=== PATIENT | female | born 1955 | race Caucasian/White ===

== ENCOUNTER 2016-08-16 17:36 | Emergency (ER) | payer MEDICARE ==
--- NOTE | 2016-08-16 18:02 | ERPHSYRPT ---
- History of Present Illness Time Seen by Provider: 08/16/16 17:57 Source: patient Exam Limitations: no limitations Physician History: The patient is a 7-year-old female with her son complaining of a cough for 4 weeks. She developed a fever of 101.2 last night. She vomited today. She has a mild sore throat. She did not receive an influenza vaccination this year. She smokes. She has COPD. Timing/Duration: yesterday (fever since yest), week(s) (4 week cough) Cough Quality/Degree: dry cough Possible Cause: occasional episodes, smoke exposure Modifying Factors: Improves With: activity Associated Symptoms: fever Allergies/Adverse Reactions: amoxicillin trihydrate [From Augmentin] Adverse Reaction (Verified 08/16/16 18: 04) potassium clavulanate [From Augmentin] Adverse Reaction (Verified 08/16/16 18:04 ) Home Medications: Buspirone HCl 10 mg PO BID 11/27/15 [History] Venlafaxine HCl ER 75 mg [Effexor XR 75 MG] 225 mg PO DAILY 11/27/15 [ History] Alendronate Sodium 70 mg [Fosamax 70 MG] 70 mg PO Q7D@0600 08/16/16 [ History] Cholecalciferol (Vitamin D3) [Vitamin D3] 10,000 unit PO DAILY 08/16/16 [History ] Hx Tetanus, Diphtheria Vaccination/Date Given: Yes (unknown) Hx Influenza Vaccination/Date Given: No Hx Pneumococcal Vaccination/Date Given: No - Review of Systems Constitutional: Fever Eyes: No Symptoms Ears, Nose, & Throat: Throat Pain Respiratory: Cough Cardiac: No Chest Pain, No Edema, No Syncope Abdominal/Gastrointestinal: No Abdominal Pain, No Nausea, No Vomiting, No Diarrhea Genitourinary Symptoms: No Dysuria Musculoskeletal: No Back Pain, No Neck Pain Skin: No Rash Neurological: No Dizziness, No Focal Weakness, No Sensory Changes Psychological: No Symptoms Endocrine: No Symptoms Hematologic/Lymphatic: No Symptoms Immunological/Allergic: No Symptoms All Other Systems: Reviewed and Negative - Past Medical History Pertinent Past Medical History: Yes Psycho-Social History: Anxiety Other Medical History: chronic pain - Past Surgical History Past Surgical History: Yes Musculoskeletal: Joint Replacement, Orthopedic Surgery Female Surgical History: Hysterectomy - Social History Smoking Status: Current every day smoker How long have you smoked: 40 Exposure to second hand smoke: No Drug Use: none Patient Lives Alone: No - Nursing Vital Signs Nursing Vital Signs: Initial Vital Signs Temperature 98.5 F Temperature Source Oral Pulse Rate 97 Respiratory Rate 20 Blood Pressure [] 133/82 Pain Intensity 0 - Physical Exam General Appearance: no apparent distress, alert Eye Exam: PERRL/EOMI, eyes nml inspection Ears, Nose, Throat Exam: normal ENT inspection, TMs normal, pharynx normal, moist mucous membranes Neck Exam: normal inspection, non-tender, supple, full range of motion Respiratory Exam: rhonchi Cardiovascular Exam: regular rate/rhythm, normal heart sounds Gastrointestinal/Abdomen Exam: soft, No tenderness Pelvic Exam: not done Rectal Exam: not done Back Exam: normal inspection, No CVA tenderness, No vertebral tenderness Extremity Exam: normal inspection, normal range of motion Neurologic Exam: alert, oriented x 3, cooperative, normal mood/affect, sensation nml, No motor deficits Skin Exam: normal color, warm, dry, No rash SpO2 Interpretation: normal - Radiology Exams Chest X-ray Interpretation: Interpreted by me, Infiltrates (RML) Ordered Tests: Active Orders 24 hr Category Date Time Status CHEST 2 VIEWS (PA AND LAT) Stat Exams 08/16/16 18:04 Taken Medication Summary Discontinued Medications Generic Name Dose Route Start Last Admin Trade Name Roman PRN Reason Stop Dose Admin Ceftriaxone Sodium 1,000 mg 08/16/16 19:01 08/16/16 19:05 Rocephin 1000 Mg Inj IM 08/16/16 19:02 1,000 mg STAT ONE Administration Ceftriaxone Sodium Confirm 08/16/16 19:03 Rocephin 1000 Mg Inj Administered 08/16/16 19:04 Dose 1,000 mg .ROUTE .STK-MED ONE Lidocaine HCl Confirm 08/16/16 19:03 Xylocaine 1% Hcl 20 Ml Mdv Administered 08/16/16 19:04 Dose 3 ml .ROUTE .STK-MED ONE - Progress Progress: improved Air Movement: good Blood Culture(s) Obtained: No Antibiotics given: No Counseled pt/family regarding: rad results - Departure Time of Disposition: 19:07 Departure Disposition: Home Clinical Impression: Pulmonary infiltrate Condition: Stable Critical Care Time: No Referrals: XAVIER WELLS [Primary Care Provider] - Additional Instructions: Follow up in 1 to 2 days. Prescriptions: Azithromycin [Azithromycin 250 mg Pack] 250 mg PO UD #6 tablet
[2016-08-16] MEDS ORDERED: Rocephin 1000 MG INJ IM ONE (19:01)
[2016-08-16] MEDS ORDERED: XYLOCAINE 1% HCL 20 ML MDV ONE (19:03)
[2016-08-16] MEDS ORDERED: Rocephin 1000 MG INJ ONE (19:03)
[2016-08-16 19:14] VITALS: BP 132/78; PULSE 91; O2SAT 96
--- NOTE | 2016-08-17 08:54 | XRAY ---
Indication: Cough. Comparison: None PA/lateral chest demonstrates subtle right middle lobe infiltrate versus atelectasis and a few scattered calcified granulomas. Remaining lungs clear. Heart is not enlarged. Bony thorax intact with mild osteopenia and previous surgery of the left shoulder and visualized lumbar spine. Impression: Right middle lobe infiltrate/atelectasis. Correlate clinically.
== END 2016-08-16 19:14 | disposition home or self-care (01) ==
LOC: ED 17:36
DX: R91.8 Other nonspecific abnormal finding of lung field (principal); R50.9 Fever, unspecified; J44.9 Chronic obstructive pulmonary disease, unspecified; R11.10 Vomiting, unspecified; Z72.0 Tobacco use
CPT/HCPCS: 71020; 87631; 96372; 99283; 99284; J0696

== ENCOUNTER 2016-10-01 13:28 | Emergency (ER) | payer MEDICARE ==
[2016-10-01 13:35] VITALS: O2SAT 95
[2016-10-01] MEDS ORDERED: Norco 10/325 MG Tablet PO ONE (14:07)
[2016-10-01] MEDS ORDERED: Norco 10/325 MG Tablet ONE (14:11)
--- NOTE | 2016-10-01 14:26 | XRAY ---
Indication: Lateral pain and bruising following twisting injury. Comparison: None 3 nonweightbearing views of the left foot demonstrates tiny spurring of the midfoot and calcaneus. A few soft tissue calcified granulomas. No other bony, articular, or soft tissue abnormalities.
--- NOTE | 2016-10-01 14:27 | ERPHSYRPT ---
- History of Present Illness Time Seen by Provider: 10/01/16 14:00 Source: patient Exam Limitations: clinical condition Patient Subjective Stated Complaint: lt foot pain post fall on wednesday Triage Nursing Assessment: fell into covered area on wednesday and injured lt foot. fell to knees. intermittent scatica pain and constant lt foot pain. bruising and swelling to outer lt foot. pedal pulses present. Physician History: PATIENT STATES SHE TURNED HER LEFT FOOT, HEARD POP SENSATION WALKING DOWN STEPS 2 DAYS AGO. HAS PERSISTENT PAIN WITH SWELLING. DENIES DEFORMITY OR BRUISING. Method of Injury: twisted Occurred: days ago Quality: constant, throbbing Severity of Pain-Max: severe Severity of Pain-Current: severe Lower Extremities Pain: heel: left Modifying Factors: Improves With: movement Associated Symptoms: unable to bear weight Allergies/Adverse Reactions: amoxicillin trihydrate [From Augmentin] Adverse Reaction (Verified 10/01/16 13: 35) potassium clavulanate [From Augmentin] Adverse Reaction (Verified 10/01/16 13:35 ) Home Medications: Buspirone HCl 10 mg PO BID 11/27/15 [History] Venlafaxine HCl ER 75 mg [Effexor XR 75 MG] 225 mg PO DAILY 11/27/15 [ History] Alendronate Sodium 70 mg [Fosamax 70 MG] 70 mg PO Q7D@0600 08/16/16 [ History] Cholecalciferol (Vitamin D3) [Vitamin D3] 50,000 unit PO UD 08/16/16 [History] Hx Tetanus, Diphtheria Vaccination/Date Given: Yes Hx Influenza Vaccination/Date Given: No Hx Pneumococcal Vaccination/Date Given: No Immunizations Up to Date: Yes - Review of Systems Constitutional: No Fever, No Chills Eyes: No Symptoms Ears, Nose, & Throat: No Symptoms Respiratory: No Cough, No Dyspnea Cardiac: No Chest Pain, No Edema, No Syncope Abdominal/Gastrointestinal: No Abdominal Pain, No Nausea, No Vomiting, No Diarrhea Genitourinary Symptoms: No Dysuria Musculoskeletal: Injury, Joint Pain, No Back Pain, No Neck Pain Skin: No Rash Neurological: No Dizziness, No Focal Weakness, No Sensory Changes Psychological: No Symptoms Endocrine: No Symptoms All Other Systems: Reviewed and Negative - Past Medical History Pertinent Past Medical History: Yes Musculoskeletal History: Degenerative Disk Disease Psycho-Social History: Anxiety Other Medical History: chronic pain - Past Surgical History Past Surgical History: Yes Musculoskeletal: Joint Replacement, Orthopedic Surgery Female Surgical History: Hysterectomy Other Surgical History: back surgery. bilat hip replacement. lt shoulder surgery - Social History Smoking Status: Former smoker How long have you smoked: 40 Exposure to second hand smoke: Yes Drug Use: none Patient Lives Alone: No - Nursing Vital Signs Nursing Vital Signs: Initial Vital Signs Temperature 97.6 F Temperature Source Oral Pulse Rate 87 Respiratory Rate 16 Blood Pressure [] 136/75 Pain Intensity 9 - Physical Exam General Appearance: alert Back Exam: normal inspection, No vertebral tenderness Foot Exam: left foot: pain (MARKED TENDERNESS LEFT HEAD OF 5TH METATARSAL, NO ECCHYMOSIS, LEFT PEDIS PULSE 2+), soft tissue tenderness, swelling Neuro/Tendon Exam: normal sensation, normal motor functions Mental Status Exam: alert, oriented x 3, cooperative Skin Exam: normal color, warm, dry SpO2: 95 Oxygen Delivery: Room Air - Radiology Exams Left Foot X-ray Interpretation: Discussed w/ radiologist (NO EVIDENCE OF FRACTURE OF DISLOCATION) Ordered Tests: Active Orders 24 hr Category Date Time Status Crutches STAT Care 10/01/16 14:38 Inactive Splint STAT Care 10/01/16 14:28 Active FOOT (MINIMUM 3 VIEWS) Stat Exams 10/01/16 14:08 Completed Medication Summary Discontinued Medications Generic Name Dose Route Start Last Admin Trade Name Roman PRN Reason Stop Dose Admin Acetaminophen/Hydrocodone Bitart 1 tab 10/01/16 14:07 10/01/16 14:19 [place] 10/325 Mg Tablet PO 10/01/16 14:08 1 tab STAT ONE Administration Acetaminophen/Hydrocodone Bitart Confirm 10/01/16 14:11 [place] 10/325 Mg Tablet Administered 10/01/16 14:12 Dose 1 tab .ROUTE .STK-MED ONE - Progress Progress Note: 10/01/16 14:37 PATIENT GIVEN NORCO 10/325 ORALLY, FITTED FOR LEFT POST OP SHOE 10/01/16 14:42 Counseled pt/family regarding: diagnosis, need for follow-up - Departure Time of Disposition: 14:50 Departure Disposition: Home Clinical Impression: CONTUSION/STRAIN LEFT FOOT Condition: Stable Critical Care Time: No Referrals: XAVIER WELLS [Primary Care Provider] - Additional Instructions: WEAR POST OP SHOE FOR COMFORT. AMBULATE USING WALKER ASSISTANCE NONWEIGHT BEARING LEFT FOOT FOR 5 DAYS. TORADOL 10MG EVERY 6 HOURS FOR MILD TO MODERATE PAIN. NORCO 5/325 EVERY 4 HOURS FOR SEVERE PAIN. Prescriptions: Hydrocodone Bit/Acetaminophen [[place] 5/325Mg] 1 each PO Q4HPRN PRN #10 tablet PRN Reason: Pain Ketorolac Tromethamine [Toradol] 10 mg PO Q6HPRN PRN #20 tablet PRN Reason: Pain
[2016-10-01 14:52] VITALS: BP 133/75; PULSE 86
== END 2016-10-01 14:53 | disposition home or self-care (01) ==
LOC: ED 13:28
DX: S90.32XA Contusion of left foot, initial encounter (principal); S93.602A Unspecified sprain of left foot, initial encounter; W10.9XXA Fall (on) (from) unspecified stairs and steps, initial encounter
CPT/HCPCS: 73630; 99283; A9270-GY

== ENCOUNTER 2016-12-06 17:22 | Emergency (ER) | payer MEDICARE ==
--- NOTE | 2016-12-06 17:48 | ERPHSYRPT ---
- History of Present Illness Time Seen by Provider: 12/06/16 17:45 Source: patient Exam Limitations: no limitations Patient Subjective Stated Complaint: pt states she noticed some hematuria yesterday. pt also c/o cough.states it is productive. c/o dysuria. Triage Nursing Assessment: pt pink, warm, dry. lung sounds clear and equal. Physician History: pt states she noticed some hematuria yesterday. pt also c/o cough.states it is productive. c/o dysuria. c/o fever, no nausea, vomiting diarrhea Pain Radiation: suprapubic Severity of Pain-Max: mild Severity of Pain-Current: mild Sexual intercourse history: non-contributory Modifying Factors: Improves With: nothing Associated Symptoms: dysuria, urinary frequency, other (cough with chest congestion) Allergies/Adverse Reactions: amoxicillin trihydrate [From Augmentin] Adverse Reaction (Verified 12/06/16 17: 41) potassium clavulanate [From Augmentin] Adverse Reaction (Verified 12/06/16 17:41 ) Home Medications: Buspirone HCl 10 mg PO BID 11/27/15 [History] Venlafaxine HCl ER 75 mg [Effexor XR 75 MG] 225 mg PO DAILY 11/27/15 [ History] Alendronate Sodium 70 mg [Fosamax 70 MG] 70 mg PO Q7D@0600 08/16/16 [ History] Cholecalciferol (Vitamin D3) [Vitamin D3] 50,000 unit PO UD 08/16/16 [History] Hx Tetanus, Diphtheria Vaccination/Date Given: Yes (unknown) Hx Influenza Vaccination/Date Given: No Hx Pneumococcal Vaccination/Date Given: No - Review of Systems Constitutional: Fever Eyes: No Symptoms Ears, Nose, & Throat: No Symptoms Respiratory: Cough Cardiac: No Symptoms Abdominal/Gastrointestinal: No Symptoms Genitourinary Symptoms: Dysuria, Hematuria Musculoskeletal: No Symptoms Skin: No Symptoms - Past Medical History Pertinent Past Medical History: Yes Respiratory History: COPD, Emphysema Musculoskeletal History: Degenerative Disk Disease Psycho-Social History: Anxiety Other Medical History: chronic pain - Past Surgical History Past Surgical History: Yes Musculoskeletal: Joint Replacement, Orthopedic Surgery Female Surgical History: Hysterectomy Other Surgical History: back surgery. bilat hip replacement. lt shoulder surgery - Social History Smoking Status: Current every day smoker How long have you smoked: 30 Exposure to second hand smoke: Yes Drug Use: none Patient Lives Alone: No - Nursing Vital Signs Nursing Vital Signs: Initial Vital Signs Temperature 99.0 F Temperature Source Oral Pulse Rate 97 Respiratory Rate 18 Blood Pressure [] 120/57 Pain Intensity 0 - Physical Exam General Appearance: no apparent distress Eye Exam: PERRL/EOMI Ears, Nose, Throat Exam: normal ENT inspection Neck Exam: normal inspection Respiratory Exam: normal breath sounds Cardiovascular Exam: regular rate/rhythm Gastrointestinal/Abdomen Exam: soft Neurologic Exam: alert, oriented x 3 Skin Exam: normal color SpO2 Interpretation: normal SpO2: 97 Oxygen Delivery: Room Air - Course Nursing assessment & vital signs reviewed: Yes - Radiology Exams Chest X-ray Interpretation: Reviewed by me (no acute infiltrate) Ordered Tests: Active Orders 24 hr Category Date Time Status CHEST 2 VIEWS (PA AND LAT) Stat Exams 12/06/16 17:40 Ordered CBC W DIFF Stat Lab 12/06/16 17:51 Completed CMP Stat Lab 12/06/16 17:51 Completed CULTURE,URINE Stat Lab 12/06/16 17:51 Received Manual Differential NC Stat Lab 12/06/16 17:51 Completed UA W/ MICROSCOPIC Stat Lab 12/06/16 17:51 Completed Medication Summary Discontinued Medications Generic Name Dose Route Start Last Admin Trade Name Freq PRN Reason Stop Dose Admin Ciprofloxacin 500 mg 12/06/16 18:15 12/06/16 18:22 Cipro 500 Mg PO 12/06/16 18:16 500 mg STAT ONE Administration Potassium Chloride 40 meq 12/06/16 18:22 12/06/16 18:24 Klor Con 10 Meq PO 12/06/16 18:23 40 meq STAT ONE Administration Lab/Rad Data: Laboratory Result Diagrams 12/06/16 17:51 12/06/16 17:51 Laboratory Results 12/06/16 12/06/16 12/06/16 Range/Units 17:51 17:51 17:51 WBC 9.1 (4.0-10.5) K/mm3 RBC 4.25 (4.1-5.4) M/mm3 Hgb 12.7 (12.0-16.0) gm/dl Hct 37.6 (35-47) % MCV 88.5 (78-100) fl MCH 29.9 (26-32) pg MCHC 33.8 (32-36) g/dl RDW 14.9 H (11.5-14.0) % Plt Count 162 (150-450) K/mm3 MPV 9.9 H (6-9.5) fl Sodium 137 (136-145) mEq/L Potassium 2.6 L* (3.5-5.1) mEq/L Chloride 102 (98-107) mEq/L Carbon Dioxide 26.5 (21-32) mEq/L Anion Gap 11.7 (5-15) MEQ/L BUN 7 L (9-20) mg/dL Creatinine 0.83 (0.55-1.30) mg/dl Estimated GFR > 60 ML/MIN Glucose 150 H (70-110) MG/DL Calcium 9.3 (8.5-10.1) mg/dL Total Bilirubin 0.40 (0.2-1.0) mg/dL AST 20 (15-37) U/L ALT 19 (12-78) U/L Alkaline Phosphatase 117 H (46-116) U/L Serum Total Protein 6.7 (6.4-8.2) gm/dL Albumin 2.9 L (3.4-5.0) g/dL Ur Collection Type CLEAN CATCH Urine Color YELLOW (YELLOW) Urine Appearance SLIGHTLY CLOUDY (CLEAR) Urine pH 6.0 (5-6) Ur Specific Mayo 1.005 (1.005-1.025) Urine Protein 30 (Negative) Urine Ketones NEGATIVE (NEGATIVE) Urine Blood 250 (0-5) Roman/ul Urine Nitrite POSITIVE (NEGATIVE) Urine Bilirubin NEGATIVE (NEGATIVE) Urine Urobilinogen NORMAL (0-1) mg/dL Ur Leukocyte Esterase 2+ (NEGATIVE) Urine Microscopic RBC 10-15 (0-2) /HPF Urine Microscopic WBC 25-50 (0-5) /HPF Ur Epithelial Cells MODERATE (FEW) /HPF Urine Bacteria MANY (NEGATIVE) /HPF Urine Mucus SLIGHT (NEGATIVE) /HPF Urine Glucose NEGATIVE (NEGATIVE) mg/dL Specimen Received 12/06/16 1750 - Progress Progress: unchanged Air Movement: good Counseled pt/family regarding: lab results, diagnosis, need for follow-up, rad results, smoking cessation - Departure Time of Disposition: 18:17 Departure Disposition: Home Clinical Impression: Pyelonephritis, acute, Hypokalemia due to loss of potassium, Hyperglycemia Condition: Stable Critical Care Time: No Referrals: ABDAYEM,XAVIER [Primary Care Provider] - Instructions: Hematuria, Kidney Infection Additional Instructions: URINARY TRACT INFECTION 1. You will need to drink plenty of fluids in order to keep your urinary system flushed. These fluids should mainly consist of water and juices. 2. Take medications as directed. You need to completely finish any antiobiotic prescription given. 3. Try to avoid coffee, tea, alcohol, and seasoned foods as they may cause bladder irritation. 4. If signs and symptoms persist after 3-4 days, you will need to follow up with your family physician. 5. Female Patients: A. Avoid intercourse for 3-4 days. B. Empty bladder before and after intercourse to reduce risk of re- infection. C. After emptying bladder, wipe from front to back to reduce the risk of re- infection. Please follow the instructions given to you. Please take your medication as prescribed if given. If symptoms recur or get worse, come back to the emergency room if you cannot reach your primary care physician, or call your primary care physician for an appointment. Again if your symptoms get worse, come back to the emergency room. Thanks for visiting emergency room, and let us take care of you. Please get your blood and urine test done to check your potassium level and infection in your urine in 3 days. Prescriptions: Ciprofloxacin [Cipro 500 MG] 500 mg PO BIDAC #20 tablet Potassium Chloride [K-Dur] 20 meq PO BID #20 tab.er.prt
[2016-12-06 17:55] LABS: Mean Cell Volume 88.5 fl (78-100); Mean Corpuscular Hemoglobin 29.9 pg (26-32); Mean Platelet Volume 9.9 fl (6-9.5); Platelet Count 162 K/mm3 (150-450); Red Blood Count 4.25 M/mm3 (4.1-5.4); Red Cell Distribution Width 14.9 % (11.5-14.0); White Blood Count 9.1 K/mm3 (4.0-10.5)
[2016-12-06 18:06] LABS: Collection Type CLEAN CATCH; Leukocyte Esterase 2+ (NEGATIVE)
[2016-12-06 18:07] LABS: ADD URINE CULTURE? YES (NO); Bacteria MANY /HPF (NEGATIVE); Bilirubin NEGATIVE (NEGATIVE); Blood 250 Ery/ul (0-5); COMPLETE URINE MICROSCOPIC? YES; Epithelial Cells MODERATE /HPF (FEW); Glucose NEGATIVE (NEGATIVE); Mucus SLIGHT /HPF (NEGATIVE); WBC 25-50 /HPF (0-5)
[2016-12-06 18:14] LABS: ALBUMIN 2.9 g/dL (3.4-5.0); ALKALINE PHOSPHATASE 117 U/L (46-116); ANION GAP 11.7 MEQ/L (5-15); BLOOD UREA NITROGEN 7 mg/dL (9-20); CHLORIDE 102 mEq/L (98-107); Carbon Dioxide 26.5 mEq/L (21-32); Glucose 150 MG/DL (70-110); SGOT/AST 20 U/L (15-37); SGPT/ALT 19 U/L (12-78); SODIUM 137 mEq/L (136-145); Total Protein 6.7 gm/dL (6.4-8.2)
[2016-12-06] MEDS ORDERED: Cipro 500 MG PO ONE (18:15)
[2016-12-06 18:21] LABS: Potassium 2.6 mEq/L (3.5-5.1)
[2016-12-06] MEDS ORDERED: Klor Con 10 MEQ PO ONE (18:22)
[2016-12-06 18:41] VITALS: BP 131/70; PULSE 85; O2SAT 100
[2016-12-06 18:52] LABS: BAND 2 % (0.0-2.0); Platelet Estimate NORMAL (NORMAL); Total Cells Counted 100
--- NOTE | 2016-12-06 21:07 | XRAY ---
Indication: Cough. Comparison: August 16, 2016. PA/lateral chest again demonstrates calcified granulomas, largest in the right costophrenic angle. No focal infiltrate, consolidation, or large effusion. Heart is not enlarged. Bony thorax intact again with mild osteopenia and left shoulder arthroplasty. Impression: Nonacute chest with chronic features.
== END 2016-12-06 18:41 | disposition home or self-care (01) ==
LOC: ED 17:22
DX: N10 Acute pyelonephritis (principal); E87.6 Hypokalemia; R73.9 Hyperglycemia, unspecified; R31.9 Hematuria, unspecified; R05 Cough; R30.0 Dysuria; R50.9 Fever, unspecified; R35.0 Frequency of micturition; J44.9 Chronic obstructive pulmonary disease, unspecified
CPT/HCPCS: 36415; 71020; 80053; 81000; 85025; 87077; 87086; 87186; 99283; 99284; A9270-GY

== ENCOUNTER 2017-02-22 16:07 | Emergency (ER) | payer MEDICARE ==
[2017-02-22 16:16] VITALS: BP 165/70; PULSE 94; O2SAT 99
[2017-02-22] MEDS ORDERED: XYLOCAINE 1% HCL 20 ML MDV IJ ONE (16:44)
[2017-02-22] MEDS ORDERED: BACIGUENT PACKET TP ONE (16:44)
[2017-02-22] MEDS ORDERED: Adacel Vial IM ONE (16:44)
--- NOTE | 2017-02-22 16:50 | ERPHSYRPT ---
- History of Present Illness Time Seen by Provider: 02/22/17 16:38 Source: patient Patient Subjective Stated Complaint: PT REPORTS A BITE TO LOWER RIGHT LEG- REPORTS SORE OPENED ET BEGAN DRAINING GREEN DRAINAGE TODAY Triage Nursing Assessment: PT PINK WARM ET [id number] NONLABORED-OPENED SORE NOTED TO LOWER RIGHT CALF-NO DRAINAGE AT THIS TIME Physician History: CC: right leg redness Hx: 61 y/o patient of Dr Nunez. She has a place on right lower medial leg with some green drng this AM. It has some itching and burning. Allergic to augmentin. Allergies/Adverse Reactions: amoxicillin trihydrate [From Augmentin] Allergy (Intermediate, Verified 16:16) Hives potassium clavulanate [From Augmentin] Allergy (Intermediate, Verified 02/22/17 16:16) Hives Home Medications: Buspirone HCl 10 mg PO BID 11/27/15 [History] Venlafaxine HCl ER 75 mg [Effexor XR 75 MG] 225 mg PO DAILY 11/27/15 [ History] Alendronate Sodium 70 mg [Fosamax 70 MG] 70 mg PO Q7D@0600 08/16/16 [ History] Hx Tetanus, Diphtheria Vaccination/Date Given: Yes Hx Influenza Vaccination/Date Given: Yes (2015) Hx Pneumococcal Vaccination/Date Given: No Immunizations Up to Date: Yes - Review of Systems Constitutional: No Fever, No Chills Skin: Skin Lesions (right leg) - Past Medical History Pertinent Past Medical History: Yes Respiratory History: COPD, Emphysema Musculoskeletal History: Degenerative Disk Disease Psycho-Social History: Anxiety Other Medical History: chronic pain - Past Surgical History Past Surgical History: Yes Musculoskeletal: Joint Replacement, Orthopedic Surgery Female Surgical History: Hysterectomy Other Surgical History: back surgery. bilat hip replacement. lt shoulder surgery - Social History Smoking Status: Current every day smoker How long have you smoked: 30 Exposure to second hand smoke: Yes Drug Use: none Patient Lives Alone: No - Nursing Vital Signs Nursing Vital Signs: Initial Vital Signs Temperature 98.9 F 02/22/17 16:11 Pulse Rate 94 H 02/22/17 16:11 Respiratory Rate 18 02/22/17 16:11 Blood Pressure 165/70 02/22/17 16:11 O2 Sat by Pulse Oximetry 99 02/22/17 16:11 Pain Scale Pain Intensity 7 - Physical Exam General Appearance: alert Cardiovascular/Respiratory Exam: regular rate/rhythm Neuro/Tendon Exam: normal sensation, normal motor functions Mental Status Exam: alert, oriented x 3, cooperative Skin Exam: warm, dry, other (red area with central necrosis and some drng right lwoer medial leg) SpO2: 99 Oxygen Delivery: Room Air Procedures - Incision and Drainage Site: right lower leg medial Anesthesia: 1% Lidocaine cc's of anesthesia: 2 Blade Size: other (18 ga needle) I & D Procedure: betadine prep Results: small amount pus - Course Nursing assessment & vital signs reviewed: Yes Ordered Tests: Active Orders 24 hr Category Date Time Status Wound Care STAT Care 02/22/17 16:44 Active Medication Summary Generic Name Dose Route Start Last Admin Trade Name Jhonatanq PRN Reason Stop Dose Admin Bacitracin 0.9 gm 02/22/17 16:44 Baciguent Packet TP 02/22/17 16:45 STAT ONE Diphtheria/Tetanus/Acell Pertussis 0.5 ml 02/22/17 16:44 Adacel Vial IM 02/22/17 16:45 .ONCE ONE Lidocaine HCl 5 ml 02/22/17 16:44 Xylocaine 1% Hcl 20 Ml Mdv IJ 02/22/17 16:45 STAT ONE - Progress Progress Note: 02/22/17 16:47 Rx bactrim and bactroban. Instr given. Counseled pt/family regarding: diagnosis, need for follow-up - Departure Time of Disposition: 16:48 Departure Disposition: Home Clinical Impression: cutaneous abscess leg right lower Condition: Stable Critical Care Time: No Referrals: KRISTINE NUNEZ [Primary Care Provider] - Instructions: Incision and Drainage of a Skin Abscess Additional Instructions: Rx bactrim. Rx bactroban. Elevate leg. Warm compresses 4 times a day. Follow up with Dr Nunez. Prescriptions: Mupirocin [Bactroban OINTMENT] 15 gm TP BID #1 tube Smz/Tmp Ds Tablet [Bactrim Ds Tablet] 1 udtab PO BID #20 tablet
== END 2017-02-22 16:53 | disposition home or self-care (01) ==
LOC: ED 16:07
DX: L02.415 Cutaneous abscess of right lower limb (principal); S81.851A Open bite, right lower leg, initial encounter
CPT/HCPCS: 90471; 90715; 99283; A9270-GY

== ENCOUNTER 2017-03-06 15:58 | Emergency (ER) | payer MEDICARE ==
[2017-03-06] MEDS ORDERED: Rocephin 1000 MG INJ IM ONE (16:13)
[2017-03-06] MEDS ORDERED: XYLOCAINE 1% HCL 20 ML MDV ONE (16:16)
[2017-03-06] MEDS ORDERED: Rocephin 1000 MG INJ ONE (16:16)
--- NOTE | 2017-03-06 16:19 | ERPHSYRPT ---
- History of Present Illness Time Seen by Provider: 03/06/17 16:14 Source: patient Exam Limitations: no limitations Patient Subjective Stated Complaint: pt states that she has absess on her leg for 2 wks-tx by ed a week ago-pt stated that she does not want her pcp to treat her for that Triage Nursing Assessment: pt pink warm et [id number] noted-no drainage noted-resp easy et nonlabored Physician History: pt states that she has abscess on her leg for 2 wks-tx by ed a week ago-patient was seen in ER 1 week ago and it was drained and started on topical abx and oral bactrim but ulcer is not healing and redness is spreading Quality: painful Severity: mild Location: extremities (right lower leg) Allergies/Adverse Reactions: amoxicillin trihydrate [From Augmentin] Allergy (Intermediate, Verified 16:16) Hives potassium clavulanate [From Augmentin] Allergy (Intermediate, Verified 02/22/17 16:16) Hives Home Medications: Buspirone HCl 10 mg PO BID 11/27/15 [History] Venlafaxine HCl ER 75 mg [Effexor XR 75 MG] 225 mg PO DAILY 11/27/15 [ History] Alendronate Sodium 70 mg [Fosamax 70 MG] 70 mg PO Q7D@0600 08/16/16 [ History] Hx Tetanus, Diphtheria Vaccination/Date Given: Yes Hx Influenza Vaccination/Date Given: Yes (2015) Hx Pneumococcal Vaccination/Date Given: No Immunizations Up to Date: Yes - Review of Systems Constitutional: No Fever, No Chills Eyes: No Symptoms Ears, Nose, & Throat: No Symptoms Respiratory: No Cough, No Dyspnea Cardiac: No Chest Pain, No Edema, No Syncope Abdominal/Gastrointestinal: No Abdominal Pain, No Nausea, No Vomiting, No Diarrhea Genitourinary Symptoms: No Dysuria Musculoskeletal: No Back Pain, No Neck Pain Skin: Cellulitis, Induration, No Rash Neurological: No Dizziness, No Focal Weakness, No Sensory Changes Psychological: No Symptoms Endocrine: No Symptoms All Other Systems: Reviewed and Negative - Past Medical History Pertinent Past Medical History: Yes Respiratory History: COPD, Emphysema Musculoskeletal History: Degenerative Disk Disease Psycho-Social History: Anxiety Other Medical History: chronic pain - Past Surgical History Past Surgical History: Yes Musculoskeletal: Joint Replacement, Orthopedic Surgery Female Surgical History: Hysterectomy Other Surgical History: back surgery. bilat hip replacement. lt shoulder surgery - Social History Smoking Status: Current every day smoker How long have you smoked: 30 Exposure to second hand smoke: Yes Drug Use: none Patient Lives Alone: No - Nursing Vital Signs Nursing Vital Signs: Pain Scale Pain Intensity 7 - Physical Exam General Appearance: no apparent distress Eye Exam: PERRL/EOMI Ears, Nose, Throat Exam: normal ENT inspection Neck Exam: normal inspection Respiratory Exam: normal breath sounds Cardiovascular Exam: regular rate/rhythm Extremity Exam: other (small open ulcer on right lower leg with minimal purulent discharge) Neurologic Exam: alert, oriented x 3 - Course Nursing assessment & vital signs reviewed: Yes Ordered Tests: Medication Summary Generic Name Dose Route Start Last Admin Trade Name Freq PRN Reason Stop Dose Admin Ceftriaxone Sodium 1,000 mg 03/06/17 16:13 Rocephin 1000 Mg Inj IM 03/06/17 16:14 STAT ONE - Progress Progress: unchanged Counseled pt/family regarding: diagnosis, need for follow-up - Departure Time of Disposition: 16:17 Departure Disposition: Home Clinical Impression: Ulcer of right leg Qualifiers: Non-pressure ulcer stage: limited to breakdown of skin Qualified Code(s): L97.911 - Non-pressure chronic ulcer of unspecified part of right lower leg limited to breakdown of skin Condition: Stable Critical Care Time: No Referrals: KRISTINE MOONEY [Primary Care Provider] - Instructions: Wound Infection, Methicillin-Resistant Staph Infection (MRSA) Additional Instructions: Please follow the instructions given to you. Please take your medication as prescribed if given. If symptoms recur or get worse, come back to the emergency room if you cannot reach your primary care physician, or call your primary care physician for an appointment. Again if your symptoms get worse, come back to the emergency room. Thanks for visiting emergency room, and let us take care of you. Prescriptions: Levofloxacin [Levaquin 500 MG Tablet] 500 mg PO QAM #10 tablet
[2017-03-06 16:24] VITALS: BP 155/77; PULSE 88; O2SAT 99
== END 2017-03-06 16:23 | disposition home or self-care (01) ==
LOC: ED 15:58
DX: L97.911 Non-pressure chronic ulcer of unspecified part of right lower leg limited to breakdown of skin (principal); M79.661 Pain in right lower leg
CPT/HCPCS: 96372; 99284; J0696

== ENCOUNTER 2017-04-29 12:28 | Observation (INO) | payer MEDICARE ==
[2017-04-29] MEDS ORDERED: ROCEPHIN 1 Gm-D5w 50 ml Bag** 1 G/50 ML IVPB IV STA (12:51)
[2017-04-29] MEDS ORDERED: solu-MEDROL 125 MG IV ONE (12:51)
[2017-04-29] MEDS ORDERED: DUONEB 0.5-3 MG/3 ml Neb IH ONE ×3 (12:51→15:56)
[2017-04-29 13:14] LABS: BASOPHIL % 0.2 % (0.0-0.4); Eosinophil % 1.4 % (0.00-5.0); Lymphocytes % 17.8 % (24.0-44.0); Mean Cell Volume 86.8 fl (78-100); Mean Corpuscular Hemoglobin 27.6 pg (26-32); Mean Platelet Volume 9.8 fl (6-9.5); Monocytes % 9.6 % (0.0-12.0); Platelet Count 322 K/mm3 (150-450); Red Blood Count 4.63 M/mm3 (4.1-5.4); Red Cell Distribution Width 14.6 % (11.5-14.0); White Blood Count 8.1 K/mm3 (4.0-10.5)
[2017-04-29] MEDS ORDERED: solu-MEDROL 125 MG ONE (13:16)
[2017-04-29] MEDS ORDERED: ROCEPHIN 1 Gm-D5w 50 ml Bag** 1 G/50 ML IVPB IV ONE ×2 (13:16→18:00)
--- NOTE | 2017-04-29 13:24 | XRAY ---
Indication: Cough and dyspnea. Comparison: December 06, 2016P PA/lateral chest demonstrates new right lower lobe pneumonic infiltrate without large effusion. Remaining heart and lungs normal with incidental calcified granulomas. Bony thorax intact again with mild osteopenia and left shoulder arthroplasty.
[2017-04-29] MEDS ORDERED: Zithromax 500 MG/ 250 ML NaCl Premix 500 MG/250 ML IVPB IV STA (13:37)
[2017-04-29] MEDS ORDERED: Sodium Chloride 0.9% 1000 ML 1,000 ML IV SCH ×2 (13:45→15:15)
--- NOTE | 2017-04-29 13:46 | ERPHSYRPT ---
- History of Present Illness Time Seen by Provider: 04/29/17 12:45 Source: patient Exam Limitations: clinical condition Patient Subjective Stated Complaint: cough and chest congestion for five days Triage Nursing Assessment: skin w/d, color normal, resp easy. occasional dry cough. breath sounds diminished. Physician History: PATIENT WITH A HISTORY OF COPD COMPLAINS OF A NONPRODUCTIVE COUGH, EXERTIONAL DYSPNEA FOR 5 DAYS. DENIES FEVER, CHILLS, NIGHT SWEATS OR CHEST PAIN. Timing/Duration: day(s) Activities at Onset: activity Severity of Dyspnea-Max: moderate Severity of Dyspnea-Current: moderate Possible Cause: occasional episodes Modifying Factors: Improves With: activity Associated Symptoms: wheezing International travel in last 2 weeks: No Allergies/Adverse Reactions: amoxicillin trihydrate [From Augmentin] Allergy (Intermediate, Verified 12:37) Hives potassium clavulanate [From Augmentin] Allergy (Intermediate, Verified 04/29/17 12:37) Hives Home Medications: Buspirone HCl 10 mg PO BID 11/27/15 [History] Venlafaxine HCl ER 75 mg [Effexor XR 75 MG] 225 mg PO DAILY 11/27/15 [ History] Alendronate Sodium 70 mg [Fosamax 70 MG] 70 mg PO Q7D@0600 08/16/16 [ History] Pregabalin [Lyrica] 150 mg PO BID 04/29/17 [History] Hx Tetanus, Diphtheria Vaccination/Date Given: No Hx Influenza Vaccination/Date Given: Yes (2016) Hx Pneumococcal Vaccination/Date Given: No - Review of Systems Constitutional: No Fever, No Chills Respiratory: Cough, Dyspnea on Exertion (POOL) Cardiac: No Chest Pain, No Edema, No Syncope Neurological: No Dizziness, No Focal Weakness, No Sensory Changes Psychological: No Symptoms - Past Medical History Pertinent Past Medical History: Yes Respiratory History: COPD, Emphysema Musculoskeletal History: Degenerative Disk Disease Psycho-Social History: Anxiety Other Medical History: chronic pain - Past Surgical History Past Surgical History: Yes Musculoskeletal: Joint Replacement, Orthopedic Surgery Female Surgical History: Hysterectomy Other Surgical History: back surgery. bilat hip replacement. lt shoulder surgery - Social History Smoking Status: Current every day smoker How long have you smoked: 30 Exposure to second hand smoke: Yes Drug Use: none Patient Lives Alone: Yes - Nursing Vital Signs Nursing Vital Signs: Initial Vital Signs Temperature 97.4 F 04/29/17 12:34 Pulse Rate 105 H 04/29/17 12:34 Respiratory Rate 18 04/29/17 12:34 Blood Pressure 138/58 04/29/17 12:34 O2 Sat by Pulse Oximetry 91 L 04/29/17 12:34 Pain Scale Pain Intensity 4 - Physical Exam General Appearance: no apparent distress, alert Eye Exam: PERRL/EOMI Ears, Nose, Throat Exam: normal pharynx Neck Exam: normal inspection, supple Respiratory Exam: diminished breath sounds, wheezing (RIGHT LOWER LUNG, MINIMAL WHEEZES TERMINAL EXPIRATORYH) Cardiovascular/Chest Exam: normal heart sounds, regular rate/rhythm Peripheral Pulses Exam: carotid (R): 2+, carotid (L): 2+, femoral (R): 2+, femoral (L): 2+, dorsalis-pedis (R): 2+, dorsalis-pedis (L): 2+ Neurologic Exam: alert, oriented x 3 Skin Exam: normal color, warm SpO2 Interpretation: normal SpO2: 92 Oxygen Delivery: Room Air - Radiology Exams Chest X-ray Interpretation: Discussed w/ radiologist (NEW RIGHT LOWER LOBE PNEUMONIC INFILTRATE WITHOUT LARGE EFFUSION) Ordered Tests: Active Orders 24 hr Category Date Time Status IV Insertion STAT Care 04/29/17 12:51 Active Oxygen-ED Only NASAL CANNULA 2 lpm Care 04/29/17 13:37 Active CHEST 2 VIEWS (PA AND LAT) Stat Exams 04/29/17 12:51 Completed BLOOD CULTURE Stat Lab 04/29/17 14:00 Received BMP Stat Lab 04/29/17 13:00 Completed CBC W DIFF Stat Lab 04/29/17 12:51 Completed Respiratory Nebulizer STAT RT 04/29/17 12:51 Completed Medication Summary Generic Name Dose Route Start Last Admin Trade Name Freq PRN Reason Stop Dose Admin Sodium Chloride 1,000 mls @ 200 mls/hr 04/29/17 13:45 04/29/17 13:53 Sodium Chloride 0.9% 1000 Ml IV 05/29/17 13:44 200 mls/hr .Q5H AURA Administration Discontinued Medications Generic Name Dose Route Start Last Admin Trade Name Freq PRN Reason Stop Dose Admin Albuterol/Ipratropium 3 ml 04/29/17 12:51 04/29/17 12:58 Duoneb 0.5-3 Mg/3 Ml Neb IH 04/29/17 12:52 3 ml STAT ONE Administration Albuterol/Ipratropium Confirm 04/29/17 12:57 Duoneb 0.5-3 Mg/3 Ml Neb Administered 04/29/17 12:58 Dose 3 ml IH .STK-MED ONE Ceftriaxone Sodium/Dextrose 1 g in 50 mls @ 100 mls/hr 04/29/17 12:51 13:20 Rocephin 1 Gm-D5w 50 Ml Bag IV 04/29/17 13:20 100 mls/hr STAT STA Administration Ceftriaxone Sodium/Dextrose Confirm 04/29/17 13:16 Rocephin 1 Gm-D5w 50 Ml Bag Administered 04/29/17 13:17 Dose 1 g in 50 mls @ ud IV .STK-MED ONE Azithromycin 500 mg in 250 mls @ 250 mls/hr 04/29/17 13:37 04/29/17 14:06 Zithromax 500 Mg/ 250 Ml Nacl Premix IV 04/29/17 14:36 250 mls/hr STAT STA Administration Azithromycin Confirm 04/29/17 14:04 Zithromax 500 Mg/ 250 Ml Nacl Premix Administered 04/29/17 14:05 Dose 500 mg in 250 mls @ ud IV .STK-MED ONE Methylprednisolone Sodium Succinate 125 mg 04/29/17 12:51 04/29/17 13:20 Solu-Medrol 125 Mg IV 04/29/17 12:52 125 mg STAT ONE Administration Methylprednisolone Sodium Succinate Confirm 04/29/17 13:16 Solu-Medrol 125 Mg Administered 04/29/17 13:17 Dose 125 mg .ROUTE .STK-MED ONE Lab/Rad Data: Laboratory Result Diagrams 04/29/17 12:51 04/29/17 13:00 Laboratory Results 04/29/17 04/29/17 Range/Units 13:00 12:51 WBC 8.1 (4.0-10.5) K/mm3 RBC 4.63 (4.1-5.4) M/mm3 Hgb 12.8 (12.0-16.0) gm/dl Hct 40.2 (35-47) % MCV 86.8 (78-100) fl MCH 27.6 (26-32) pg MCHC 31.8 L (32-36) g/dl RDW 14.6 H (11.5-14.0) % Plt Count 322 (150-450) K/mm3 MPV 9.8 H (6-9.5) fl Gran % 71.0 H (36.0-66.0) % Lymphocytes % 17.8 L (24.0-44.0) % Monocytes % 9.6 (0.0-12.0) % Eosinophils % 1.4 (0.00-5.0) % Basophils % 0.2 (0.0-0.4) % Basophils # 0.02 (0-0.4) Sodium 140 (136-145) mEq/L Potassium 3.0 L* (3.5-5.1) mEq/L Chloride 102 (98-107) mEq/L Carbon Dioxide 27.2 (21-32) mEq/L Anion Gap 13.4 (5-15) MEQ/L BUN 6 L (9-20) mg/dL Creatinine 0.69 (0.55-1.30) mg/dl Estimated GFR > 60 ML/MIN Glucose 114 H (70-110) MG/DL Calcium 9.4 (8.5-10.1) mg/dL - Progress Progress Note: 04/29/17 13:46 ADMINISTERED DUONEB AEROSOL, AFTER 2 SETS OF BLOOD CULTURES, ROCEPHIN 1GM, ZITHROMAX 500MG IVPB, SOLUMEDROL 125MG IV Blood Culture(s) Obtained: Yes Antibiotics given: Yes (ROCEPHIN 1GM, ZITHROMAX 500MG IVPB,) Will see patient in: hospital (observation) (DISCUSSED WITH BLOSSOM AT 1500 FOR OBSERVATION) - Departure Time of Disposition: 15:15 Departure Disposition: Observation Clinical Impression: PNEUMONIA, EXACERBATION COPD Condition: Stable Critical Care Time: No Referrals: KRISTINE MOONEY [Primary Care Provider] -
[2017-04-29 13:48] LABS: ANION GAP 13.4 MEQ/L (5-15); BLOOD UREA NITROGEN 6 mg/dL (9-20); CHLORIDE 102 mEq/L (98-107); Carbon Dioxide 27.2 mEq/L (21-32); Glucose 114 MG/DL (70-110); SODIUM 140 mEq/L (136-145)
[2017-04-29] MEDS ORDERED: Sodium Chloride 0.9% 1000 ML 1,000 ML ONE (13:52)
[2017-04-29] MEDS ORDERED: Zithromax 500 MG/ 250 ML NaCl Premix 500 MG/250 ML IVPB IV ONE (14:04)
[2017-04-29] MEDS ORDERED: Xopenex 1.25 MG/0.5 ML UD NEBULE IH PRN (15:12)
[2017-04-29] MEDS ORDERED: Sodium Chloride 3 ML UD NEBULES IH PRN (15:48)
[2017-04-29] MEDS: DUONEB 0.5-3 MG/3 ml Neb IH SCH ×3 (16:02→22:58)
[2017-04-29] MEDS ORDERED: Klor Con 10 MEQ PO ONE (16:27)
[2017-04-29] MEDS ORDERED: Spiriva 18 Mcg/Cap Inhaler IH ONE (16:43)
[2017-04-29] MEDS ORDERED: solu-MEDROL 125 MG IV SCH (18:00)
[2017-04-29] MEDS ORDERED: Zofran 4 MG/2 ML VIAL IV PRN (18:13)
[2017-04-29] MEDS ORDERED: Ambien 5 MG Tablet PO PRN (18:13)
[2017-04-29] MEDS ORDERED: TYLENOL 325 MG PO PRN (18:13)
[2017-04-29] MEDS: Advair Hfa 230/21 Mcg COMMON CANISTER IH SCH (18:59)
[2017-04-29] MEDS ORDERED: Spiriva 18 Mcg/Cap Inhaler IH SCH (19:00)
[2017-04-29] MEDS: Tussionex Pennkinetic Susp PO SCH (21:32)
[2017-04-29] MEDS: BUSPAR 5 MG PO SCH (21:35)
[2017-04-29] MEDS: LYRICA 150MG PO SCH (21:35)
[2017-04-29] MEDS: solu-MEDROL 125 MG IV SCH (21:36)
[2017-04-29] MEDS ORDERED: Robitussin-Dm Syrup PO SCH (22:00)
[2017-04-29] MEDS ORDERED: Klor Con 10 MEQ PO SCH (22:00)
[2017-04-30] MEDS: DUONEB 0.5-3 MG/3 ml Neb IH SCH ×2 (04:06→07:00)
[2017-04-30] MEDS: solu-MEDROL 125 MG IV SCH (05:19)
[2017-04-30] MEDS: Advair Hfa 230/21 Mcg COMMON CANISTER IH SCH (07:00)
[2017-04-30 08:03] VITALS: BP 135/97; PULSE 113; O2SAT 94
--- NOTE | 2017-04-30 08:13 | HP ---
HISTORY OF PRESENT ILLNESS: Admitted through the emergency room a 62 year-old white female for dyspnea. Symptoms started about a week ago while she was in [facility]. It started as a cold. She could not get anything up and she has been struggling with breathing at night especially. She has been coughing, coughing and coughing. She had barely four hours of sleep. The last four days had chills and fever. No vomiting. She has been nauseated. Her appetite for the last three to four days has been down. She is bringing up phlegm whitish, frothy and greenish. She denies any hemoptysis. PAST MEDICAL HISTORY: Known history for anxiety, chronic depression, dyslipidemia and chronic obstructive pulmonary disease. PAST SURGICAL HISTORY: She had a lump removed from her left breast, neck surgery 2004, back surgery x2 in 2009, left arm surgery for carpal tunnel release 2010, transabdominal hysterectomy 1988. FAMILY HISTORY: Significant for hypertension. Father after acute myocardial infarction and diabetes mellitus type 2. Mother had hypertension and after post-surgery at [facility] several years ago. SOCIAL HISTORY: Minesh has been a smoker for decades. She is unemployed and denies any use of alcohol. MEDICATIONS: Aspirin 81 mg daily, Buspar 10 mg b.i.d., Fenofibrate 150 mg daily, Fosamax 17 mg daily, Lipitor 40 mg daily, Lyrica 150 mg b.i.d., Spiriva 1 to 2 puffs daily, Symbicort 2 puffs daily, topiramate 25 mg q.h.s., venlafaxine 225 mg for depression, Ventolin HFA 1 to 2 puffs four times a day for her chronic obstructive pulmonary disease. ALLERGIES: NKDA. REVIEW OF SYSTEMS: CONSTITUTIONAL: A very pleasant 62 year-old white female who is fully alert and awake. HEENT: Head is atraumatic, nonicteric. NECK: Soft, supple. No thyromegaly. CHEST: Inspiratory/expiratory rhonchi and rales both lung samano. HEART: Regular rate and rhythm, 80 beats/minute. ABDOMEN: Soft, obese, nontender. There are no masses. No guarding or rigidity. EXTREMITIES: No clubbing or cyanosis. No leg edema. NEURO: No gross neurologic deficits. PHYSICAL EXAMINATION: This is a pleasant 62 year-old white female. She is obese. HEENT: Normocephalic, nonicteric. NECK: Soft, supple. No thyromegaly. No JVD. CHEST: Inspiratory/expiratory rales and rhonchi more prominent on expiration. HEART: Regular rate and rhythm without murmurs, gallops or thrills. ABDOMEN: Soft, obese. No tenderness. No masses or guarding. No rigidity. EXTREMITIES: No clubbing or cyanosis. No leg edema. IMPRESSION: 1) Acute dyspnea. 2) Right lower lobe pneumonia. 3) Chronic obstructive pulmonary disease. 4) Chronic low back pain syndrome. 5) Chronic depression. 6) Exogenous obesity. PLAN: IV Rocephin and Zithromax as well as Proventil and Atrovent, continuation of her Spiriva and IV steroids. Hopefully she can be discharged the following day. She has been admitted for observation. CONDITION: Fair.
[2017-04-30] MEDS: LYRICA 150MG PO SCH (09:17)
[2017-04-30] MEDS: BUSPAR 5 MG PO SCH (09:18)
[2017-04-30] MEDS: Tussionex Pennkinetic Susp PO SCH (09:19)
[2017-04-30] MEDS ORDERED: Zithromax 250 MG TABLET PO SCH (10:00)
[2017-04-30] MEDS ORDERED: Klor Con 10 MEQ PO SCH ×2 (10:00)
[2017-04-30] MEDS ORDERED: ROCEPHIN 1 Gm-D5w 50 ml Bag** 1 G/50 ML IVPB IV SCH (10:00)
[2017-04-30] MEDS ORDERED: Zithromax 500 MG/ 250 ML NaCl Premix 500 MG/250 ML IVPB IV SCH (10:00)
[2017-04-30] MEDS ORDERED: Effexor XR 75 MG PO SCH (22:00)
== END 2017-04-30 11:30 | disposition home or self-care (01) ==
LOC: ED 12:28 → MED SURG 15:30
PROVIDERS: ADMIT Family Medicine; ATTEND Family Medicine
DX: J18.1 Lobar pneumonia, unspecified organism (principal); J44.9 Chronic obstructive pulmonary disease, unspecified; I10 Essential (primary) hypertension; M54.5 Low back pain; F32.9 Major depressive disorder, single episode, unspecified; F41.9 Anxiety disorder, unspecified; E78.5 Hyperlipidemia, unspecified; Z79.899 Other long term (current) drug therapy; E66.09 Other obesity due to excess calories
CPT/HCPCS: 36000; 36415; 71020; 80048; 85025; 87040; 94640; 94760; 96360; 96361; 96365; 96367; 96374; 99285; G0378; J0456; J0696; J2930; A9270-GY

== ENCOUNTER 2017-08-10 18:10 | Emergency (ER) | payer MEDICARE ==
--- NOTE | 2017-08-10 18:41 | ERPHSYRPT ---
- History of Present Illness Time Seen by Provider: 08/10/17 18:36 Source: patient Exam Limitations: no limitations Patient Subjective Stated Complaint: low back pain, painful urination Triage Nursing Assessment: pt to er c/o low back pain with painful urination, pt has hx of urinary infections and states she feels this is the same Physician History: C/o chronic, recurrent low back pain, not radiating, and urinary burning, frequency for 2 days. She had low back surgery n the past, frequent pain, but no recent fall, or injury. She started c/o burning on urination 2 days ago, low grade fever, chills, she took Tylenol at 17:00 PM, denies severe abdominal pain , nausea, vomiting or diarrhea, no bloody urine or vaginal bleeding. Timing/Duration: day(s) (2) Method of Injury: unknown Quality: aching Severity of Pain-Max: moderate Severity of Pain-Current: moderate Modifying Factors: Improves With: immobilization Associated Symptoms: fever, lower back pain, other (urinary burning, frequency) Previous symptoms: same symptoms as today Allergies/Adverse Reactions: amoxicillin trihydrate [From Augmentin] Allergy (Intermediate, Verified 18:35) Hives potassium clavulanate [From Augmentin] Allergy (Intermediate, Verified 08/10/17 18:35) Hives Home Medications: Buspirone HCl 10 mg PO BID 11/27/15 [History] Venlafaxine HCl ER 75 mg [Effexor XR 75 MG] 225 mg PO HS 11/27/15 [History ] Alendronate Sodium 70 mg [Fosamax 70 MG] 70 mg PO Q7D@0600 08/16/16 [ History] Albuterol Sulfate [Proair Hfa] 2 puffs IH Q6HPRN PRN 04/29/17 [History] Budesonide/Formoterol Fumarate [Symbicort 160-4.5 Mcg Inhaler] 10.2 gm IH BID [History] Pregabalin [Lyrica] 150 mg PO BID 04/29/17 [History] Tiotropium [place]cher Inhaler [Spiriva 18 Mcg/Cap Inhaler] 1 puff IH DAILY [History] Hx Tetanus, Diphtheria Vaccination/Date Given: No Hx Influenza Vaccination/Date Given: Yes Hx Pneumococcal Vaccination/Date Given: No - Review of Systems Constitutional: Fever, Chills Abdominal/Gastrointestinal: Abdominal Pain, No Nausea, No Vomiting, No Diarrhea Genitourinary Symptoms: Dysuria, Frequency, No Hematuria, No Vaginal Bleeding Musculoskeletal: Back Pain All Other Systems: Reviewed and Negative - Past Medical History Pertinent Past Medical History: Yes Neurological History: No Pertinent History ENT History: No Pertinent History Cardiac History: No Pertinent History Respiratory History: No Pertinent History, COPD, Emphysema Endocrine Medical History: No Pertinent History Musculoskeletal History: Degenerative Disk Disease GI Medical History: No Pertinent History History: No Pertinent History Psycho-Social History: Anxiety, Depression Female Reproductive Disorders: No Pertinent History Other Medical History: chronic pain - Past Surgical History Past Surgical History: Yes Neuro Surgical History: No Pertinent History Cardiac: No Pertinent History Respiratory: Chest Surgery Gastrointestinal: No Pertinent History Genitourinary: No Pertinent History Musculoskeletal: Joint Replacement, Orthopedic Surgery Female Surgical History: Hysterectomy Other Surgical History: spinal surgery, ortho surgery - Social History Smoking Status: Never smoker How long have you smoked: 40 YEARS Exposure to second hand smoke: No Drug Use: none Patient Lives Alone: No - Female History Hx Now: No - Nursing Vital Signs Nursing Vital Signs: Initial Vital Signs Temperature 99.1 F 08/10/17 18:28 Pulse Rate 93 H 08/10/17 18:28 Respiratory Rate 20 08/10/17 18:28 Blood Pressure 142/91 08/10/17 18:28 O2 Sat by Pulse Oximetry 96 08/10/17 18:28 Pain Scale Pain Intensity [Back] 9 Pain Intensity 9 - Physical Exam General Appearance: no apparent distress Ears, Nose, Throat Exam: normal ENT inspection Neck Exam: normal inspection, non-tender Respiratory Exam: normal breath sounds, lungs clear Cardiovascular Exam: regular rate/rhythm, normal heart sounds, normal peripheral pulses Gastrointestinal Exam: soft, normal bowel sounds, tenderness (suprapubic, mild) Back Exam: normal inspection, CVA tenderness, vertebral tenderness, decreased range of motion, No muscle spasm, No point tenderness Extremity Exam: normal inspection Neurologic Exam: alert, oriented x 3, cooperative, normal mood/affect, No motor deficits Skin Exam: normal color, warm, dry, No rash Lymphatic Exam: No adenopathy SpO2 Interpretation: normal SpO2: 96 Oxygen Delivery: Room Air - Course Nursing assessment & vital signs reviewed: Yes - CT Exams Abdomen/Pelvis CT Interpretation: Negative Ordered Tests: Active Orders 24 hr Category Date Time Status Clean Catch Urine Specimen STAT Care 08/10/17 18:34 Active ABDOMEN AND PELVIS W CONTRAST [CT] Stat Exams 08/10/17 19:13 Taken CBC W DIFF Stat Lab 08/10/17 19:47 Completed CMP Stat Lab 08/10/17 19:47 Completed LIPASE Stat Lab 08/10/17 19:47 Completed Lactic Acid Stat Lab 08/10/17 19:43 Completed UA W/RFX UR CULTURE Stat Lab 08/10/17 18:50 Completed Lab/Rad Data: Laboratory Result Diagrams 08/10/17 19:47 08/10/17 19:47 Laboratory Results 08/10/17 08/10/17 08/10/17 Range/Units 19:47 19:47 19:43 WBC 6.9 (4.0-10.5) K/mm3 RBC 4.82 (4.1-5.4) M/mm3 Hgb 13.5 (12.0-16.0) gm/dl Hct 41.5 (35-47) % MCV 86.1 (78-100) fl MCH 28.0 (26-32) pg MCHC 32.5 (32-36) g/dl RDW 17.9 H (11.5-14.0) % Plt Count 256 (150-450) K/mm3 MPV 9.7 H (6-9.5) fl Gran % 55.6 (36.0-66.0) % Lymphocytes % 34.1 (24.0-44.0) % Monocytes % 7.7 (0.0-12.0) % Eosinophils % 2.2 (0.00-5.0) % Basophils % 0.4 (0.0-0.4) % Basophils # 0.03 (0-0.4) Sodium 140 (136-145) mEq/L Potassium 3.4 L (3.5-5.1) mEq/L Chloride 104 (98-107) mEq/L Carbon Dioxide 27.8 (21-32) mEq/L Anion Gap 11.9 (5-15) MEQ/L BUN 21 H (9-20) mg/dL Creatinine 0.83 (0.55-1.30) mg/dl Estimated GFR > 60 ML/MIN Glucose 88 (70-110) MG/DL Lactic Acid 1.0 (0.4-2.0) Calcium 9.2 (8.5-10.1) mg/dL Total Bilirubin 0.20 (0.2-1.0) mg/dL AST 19 (15-37) U/L ALT 17 (12-78) U/L Alkaline Phosphatase 66 (46-116) U/L Serum Total Protein 7.7 (6.4-8.2) gm/dL Albumin 3.9 (3.4-5.0) g/dL Lipase 136 (73-393) U/L Ur Collection Type Urine Color (YELLOW) Urine Appearance (CLEAR) Urine pH (5-6) Ur Specific Waldo (1.005-1.025) Urine Protein (Negative) Urine Ketones (NEGATIVE) Urine Blood (0-5) Roman/ul Urine Nitrite (NEGATIVE) Urine Bilirubin (NEGATIVE) Urine Urobilinogen (0-1) mg/dL Ur Leukocyte Esterase (NEGATIVE) Urine Culture Reflexed (NO) Urine Glucose (NEGATIVE) mg/dL Specimen Received 08/10/17 Range/Units 18:50 WBC (4.0-10.5) K/mm3 RBC (4.1-5.4) M/mm3 Hgb (12.0-16.0) gm/dl Hct (35-47) % MCV (78-100) fl MCH (26-32) pg MCHC (32-36) g/dl RDW (11.5-14.0) % Plt Count (150-450) K/mm3 MPV (6-9.5) fl Gran % (36.0-66.0) % Lymphocytes % (24.0-44.0) % Monocytes % (0.0-12.0) % Eosinophils % (0.00-5.0) % Basophils % (0.0-0.4) % Basophils # (0-0.4) Sodium (136-145) mEq/L Potassium (3.5-5.1) mEq/L Chloride (98-107) mEq/L Carbon Dioxide (21-32) mEq/L Anion Gap (5-15) MEQ/L BUN (9-20) mg/dL Creatinine (0.55-1.30) mg/dl Estimated GFR ML/MIN Glucose (70-110) MG/DL Lactic Acid (0.4-2.0) Calcium (8.5-10.1) mg/dL Total Bilirubin (0.2-1.0) mg/dL AST (15-37) U/L ALT (12-78) U/L Alkaline Phosphatase (46-116) U/L Serum Total Protein (6.4-8.2) gm/dL Albumin (3.4-5.0) g/dL Lipase (73-393) U/L Ur Collection Type CCMS Urine Color LT.YELLOW (YELLOW) Urine Appearance CLEAR (CLEAR) Urine pH 5.0 (5-6) Ur Specific Waldo 1.010 (1.005-1.025) Urine Protein NEGATIVE (Negative) Urine Ketones NEGATIVE (NEGATIVE) Urine Blood NEGATIVE (0-5) Roman/ul Urine Nitrite NEGATIVE (NEGATIVE) Urine Bilirubin NEGATIVE (NEGATIVE) Urine Urobilinogen NORMAL (0-1) mg/dL Ur Leukocyte Esterase NEGATIVE (NEGATIVE) Urine Culture Reflexed NO (NO) Urine Glucose NEGATIVE (NEGATIVE) mg/dL Specimen Received 08-10-17 1900 - Progress Progress: unchanged Progress Note: 08/10/17 22:09 Pt has frequent urination, no severe pain, vomiting or distress, afebrile, results discussed with patient, chronic back pain, and bladder spasms, instructions given to continue oral hydration, follow up with her PCP and Turn Out or Urologist, return if severe pain, bleeding, vomiting or fever> 102 F! - Departure Time of Disposition: 22:11 Departure Disposition: Home Clinical Impression: Bladder spasms Back pain Qualifiers: Back pain location: low back pain Chronicity: chronic Back pain laterality: bilateral Sciatica presence: without sciatica Qualified Code(s): M54.5 - Low back pain; G89.29 - Other chronic pain; G89.29 - Other chronic pain Condition: Stable Critical Care Time: No Referrals: KRISTINE MOONEY [Primary Care Provider] - Instructions: Low Back Pain (DC), Urethral Suspension, Tension-Free Vaginal Tape Procedure Additional Instructions: Rest x 2-3 days, drink plenty of fluids, return if severe pain, bleeding, vomiting, fever> 102 F! Follow up with your Physician and Urologist or Turn Out!
[2017-08-10 19:07] LABS: Appearance CLEAR (CLEAR); Bilirubin NEGATIVE (NEGATIVE); Blood NEGATIVE Ery/ul (0-5); Glucose NEGATIVE (NEGATIVE); Ketones NEGATIVE (NEGATIVE); Leukocyte Esterase NEGATIVE (NEGATIVE); Nitrite NEGATIVE (NEGATIVE); Protein,Urine Dip NEGATIVE (Negative); Urobilinogen NORMAL mg/dL (0-1)
[2017-08-10 19:49] LABS: BASOPHIL % 0.4 % (0.0-0.4); Basophil (Absolute #) 0.03 (0-0.4); Eosinophil % 2.2 % (0.00-5.0); Eosinophil (Absolute #) 0.15 (0-0.5); Granulocyte Absolute (ANC) 3.85 (1.4-6.9); Granulocytes % 55.6 % (36.0-66.0); Hematocrit 41.5 % (35-47); Hemoglobin 13.5 gm/dl (12.0-16.0); Lymphocyte (Absolute #) 2.36 (1.0-4.6); Lymphocytes % 34.1 % (24.0-44.0); Mean Cell Volume 86.1 fl (78-100); Mean Corpuscular Hgb Concent. 32.5 g/dl (32-36); Mean Platelet Volume 9.7 fl (6-9.5); Monocyte (Absolute #) 0.53 (0.0-1.3); Monocytes % 7.7 % (0.0-12.0); Platelet Count 256 K/mm3 (150-450); Red Blood Count 4.82 M/mm3 (4.1-5.4); Red Cell Distribution Width 17.9 % (11.5-14.0); White Blood Count 6.9 K/mm3 (4.0-10.5)
[2017-08-10 20:01] VITALS: BP 116/87; PULSE 89
[2017-08-10 20:20] LABS: ALBUMIN 3.9 g/dL (3.4-5.0); ALKALINE PHOSPHATASE 66 U/L (46-116); ANION GAP 11.9 MEQ/L (5-15); BLOOD UREA NITROGEN 21 mg/dL (9-20); CHLORIDE 104 mEq/L (98-107); Calcium 9.2 mg/dL (8.5-10.1); Carbon Dioxide 27.8 mEq/L (21-32); Creatinine 1 0.83 mg/dl (0.55-1.30); EST GLOMERULAR FILTRATION RATE > 60 ML/MIN; Glucose 88 MG/DL (70-110); LIPASE 136 U/L (73-393); Potassium 3.4 mEq/L (3.5-5.1); SGOT/AST 19 U/L (15-37); SGPT/ALT 17 U/L (12-78); SODIUM 140 mEq/L (136-145); Total Protein 7.7 gm/dL (6.4-8.2)
[2017-08-10 22:14] VITALS: O2SAT 96
--- NOTE | 2017-08-11 08:44 | XRAY ---
Indication: Abdominal pain. Painful urination. History UTI. Multiple contiguous axial images obtained through the abdomen and pelvis using 80 cc Isovue 370 contrast only. Comparison: None Lung bases demonstrates mild bibasilar atelectasis/scarring and a few right lung calcified granulomas. No infiltrate or effusion. Heart is not enlarged. Small hiatal hernia. L2-S1 fusion surgery with posterior spinal hardware and bilateral hip prostheses produces beam artifact limiting these levels. Noncontrasted stomach and bowel loops appear nonobstructed. Normal appendix. Mild descending and sigmoid diverticulosis without diverticulitis. Previous hysterectomy. No free fluid/air. Small 2 cm right mid renal cortical cyst. Remaining liver, gallbladder, pancreas, spleen, adrenal glands, kidneys, ureters, and bladder appear unremarkable. Mild aortoiliac calcifications. No AAA or pathologic retroperitoneal lymphadenopathy. Osseous structures intact with mild multilevel degenerative spondylosis and 7 mm L5 spondylolisthesis on S1. Impression: 1. Limited exam due to beam artifact from spinal and bilateral hip hardware. 2. Small hiatal hernia, colonic diverticulosis, and right renal cyst. 3. No acute intra-abdominal/pelvic abnormalities. 4. Grade [address] DI 23.68
== END 2017-08-10 22:24 | disposition home or self-care (01) ==
LOC: ED 18:10
DX: N32.89 Other specified disorders of bladder (principal); M54.5 Low back pain; G89.29 Other chronic pain; J44.9 Chronic obstructive pulmonary disease, unspecified; F41.8 Other specified anxiety disorders; Z87.440 Personal history of urinary (tract) infections; Z79.899 Other long term (current) drug therapy
CPT/HCPCS: 36415; 74177; 80053; 81002; 83605; 83690; 85025; 99284

== ENCOUNTER 2018-09-05 16:16 | Emergency (ER) | payer MEDICARE ==
[2018-09-05 16:25] VITALS: O2SAT 95
--- NOTE | 2018-09-05 16:56 | ERPHSYRPT ---
- History of Present Illness Time Seen by Provider: 09/05/18 16:35 Historian: patient, EMS Exam Limitations: no limitations Patient Subjective Stated Complaint: pt reports chest pain while lying down about 1500 today, states she had pressure to the center of her chest that radiates to the middle of her back as well as the right arm and her chin. pt reports feeling short of air and dizzy at that time as well. Triage Nursing Assessment: pt is aox3, pupils perrl, pt appears in no acute distress, afebrile, resps easy and non labored, lung sounds are diminished bilat , pt has periods of intermittent shortness of breath, pt is able to speak in full sentences at this time, radial pulses strong and equal bilat, pt heart sounds are strong and regular, pt skin pink warm dry, cap refill < 3 seconds, no edema appreciated. Physician History: 63 y/o obese white female with h/o copd, presents with central, substernal chest tightness that radiated into back, up neck and into left shoulder. occurred rapidly approx 1 hour plumber. pt took 4 baby asa. ems gave 1 ntg. pt arrives with no cp. pt continues to smoke 1 ppd. pt states she feels great. Timing/Duration: today Activities at Onset: none (watching youtube) Location: substernal, central Chest Pain Radiation: jaw, arm (left), back Severity of Pain-Max: mild Severity of Pain-Current: none Modifying Factors: Improves With: nitroglycerin, oxygen, aspirin Nitro Today/Relief: 0.4 mg x 1, provided by EMS Aspirin Treatment Today: 81 mg x 4 Allergies/Adverse Reactions: amoxicillin trihydrate [From Augmentin] Allergy (Intermediate, Verified 18:35) Hives potassium clavulanate [From Augmentin] Allergy (Intermediate, Verified 08/10/17 18:35) Hives Home Medications: Buspirone HCl 10 mg PO BID 11/27/15 [History] Venlafaxine HCl ER 75 mg [Effexor XR 75 MG] 225 mg PO HS 11/27/15 [History ] Alendronate Sodium 70 mg [Fosamax 70 MG] 70 mg PO Q7D@0600 08/16/16 [ History] Albuterol Sulfate [Proair Hfa] 2 puffs IH Q6HPRN PRN 04/29/17 [History] Budesonide/Formoterol Fumarate [Symbicort 160-4.5 Mcg Inhaler] 10.2 gm IH BID [History] Pregabalin [Lyrica] 150 mg PO BID 04/29/17 [History] Tiotropium [place] Inhaler [Spiriva 18 Mcg/Cap Inhaler] 1 puff IH DAILY [History] Hx Tetanus, Diphtheria Vaccination/Date Given: Yes Hx Influenza Vaccination/Date Given: Yes Hx Pneumococcal Vaccination/Date Given: No Immunizations Up to Date: Yes - Review of Systems Constitutional: No Symptoms Eyes: No Symptoms Ears, Nose, & Throat: No Symptoms Respiratory: No Symptoms Cardiac: Chest Pain Abdominal/Gastrointestinal: No Symptoms Genitourinary Symptoms: No Symptoms Musculoskeletal: No Symptoms Skin: No Symptoms Neurological: No Symptoms Psychological: No Symptoms Endocrine: No Symptoms Hematologic/Lymphatic: No Symptoms Immunological/Allergic: No Symptoms All Other Systems: Reviewed and Negative - Past Medical History Pertinent Past Medical History: Yes Neurological History: No Pertinent History ENT History: No Pertinent History Cardiac History: No Pertinent History Respiratory History: No Pertinent History, COPD, Emphysema Endocrine Medical History: No Pertinent History Musculoskeletal History: Degenerative Disk Disease GI Medical History: No Pertinent History History: No Pertinent History Psycho-Social History: Anxiety, Depression Female Reproductive Disorders: No Pertinent History Other Medical History: chronic pain - Past Surgical History Past Surgical History: Yes Neuro Surgical History: No Pertinent History Cardiac: No Pertinent History Respiratory: Chest Surgery Gastrointestinal: No Pertinent History Genitourinary: No Pertinent History Musculoskeletal: Joint Replacement, Orthopedic Surgery Female Surgical History: Hysterectomy Other Surgical History: spinal surgery, ortho surgery - Social History Smoking Status: Current every day smoker How long have you smoked: 40 YEARS Exposure to second hand smoke: No Drug Use: none Patient Lives Alone: No - Female History Hx Now: No - Nursing Vital Signs Nursing Vital Signs: Initial Vital Signs Temperature 98.3 F 09/05/18 16:17 Pulse Rate 74 09/05/18 16:17 Respiratory Rate 20 09/05/18 16:17 Blood Pressure 100/55 09/05/18 16:17 O2 Sat by Pulse Oximetry 95 09/05/18 16:17 Pain Scale Pain Intensity 0 - Physical Exam General Appearance: no apparent distress, alert Eye Exam: PERRL/EOMI, eyes nml inspection Ears, Nose, Throat Exam: normal ENT inspection, moist mucous membranes Neck Exam: normal inspection, non-tender, supple, full range of motion Respiratory Exam: normal breath sounds, chest tenderness, lungs clear, airway intact, No respiratory distress Cardiovascular Exam: regular rate/rhythm, normal heart sounds, normal peripheral pulses Gastrointestinal/Abdomen Exam: soft, normal bowel sounds, No tenderness, No guarding, No rebound Pelvic Exam: not done Rectal Exam: not done Back Exam: normal inspection, normal range of motion, No CVA tenderness, No vertebral tenderness Extremity Exam: normal inspection, normal range of motion, pelvis stable Neurologic Exam: alert, oriented x 3, cooperative, patent paralegal II-XII nml as tested Skin Exam: normal color, warm, dry Lymphatic Exam: No adenopathy SpO2 Interpretation: borderline oxygenation SpO2: 95 O2 Delivery: Room Air - Course Nursing assessment & vital signs reviewed: Yes EKG Interpreted by Me: RATE (72), Non-specific ST Changes, Other (indeterminate axis. no comparison ekg) Ordered Tests: Active Orders 24 hr Category Date Time Status Drop Worker STAT Care 09/05/18 16:56 Active EKG-ER Only STAT Care 09/05/18 16:55 Active IV Insertion STAT Care 09/05/18 16:55 Active Oxygen-ED Only Nasal Cannula 2 lpm Care 09/05/18 16:41 Active CHEST 1 VIEW (PORTABLE) Stat Exams 09/05/18 17:06 Completed CHEST WITH CONTRAST [CT] Stat Exams 09/05/18 18:36 Taken CBC W DIFF Stat Lab 09/05/18 17:10 Completed CMP Stat Lab 09/05/18 17:10 Completed D-DIMER QUANTITATION Stat Lab 09/05/18 17:10 Completed NT PRO BNP Stat Lab 09/05/18 17:10 Completed TROPONIN Q3H Lab 09/05/18 17:10 Completed TROPONIN Q3H Lab 09/05/18 20:00 Ordered TROPONIN Q3H Lab 09/05/18 23:00 Ordered TROPONIN Q3H Lab 09/06/18 02:00 Ordered TROPONIN Q3H Lab 09/06/18 05:00 Ordered Lab/Rad Data: Laboratory Result Diagrams 09/05/18 17:10 09/05/18 17:10 Laboratory Results 09/05/18 09/05/18 09/05/18 Range/Units 17:10 17:10 17:10 WBC (4.0-10.5) K/mm3 RBC (4.1-5.4) M/mm3 Hgb (12.0-16.0) gm/dl Hct (35-47) % MCV (78-100) fl MCH (26-32) pg MCHC (32-36) g/dl RDW (11.5-14.0) % Plt Count (150-450) K/mm3 MPV (6-9.5) fl Gran % (36.0-66.0) % Eos # (Auto) (0-0.5) Absolute Lymphs (auto) (1.0-4.6) Absolute Monos (auto) (0.0-1.3) Lymphocytes % (24.0-44.0) % Monocytes % (0.0-12.0) % Eosinophils % (0.00-5.0) % Basophils % (0.0-0.4) % Absolute Granulocytes (1.4-6.9) Basophils # (0-0.4) D-Dimer 770 H* (215-500) ng/mL Sodium 140 (137-145) mmol/L Potassium 3.5 (3.5-5.1) mmol/L Chloride 104 (98-107) mmol/L Carbon Dioxide 30 (22-30) mmol/L Anion Gap 8.8 (5-15) MEQ/L BUN 12 (7-17) mg/dL Creatinine 0.54 (0.52-1.04) mg/dL Estimated GFR > 60.0 ML/MIN Glucose 98 (74-106) mg/dL Calcium 8.9 (8.4-10.2) mg/dL Total Bilirubin 0.30 (0.2-1.3) mg/dL AST 21 (14-36) U/L ALT 15 (0-35) U/L Alkaline Phosphatase 74 (38-126) U/L Troponin I < 0.012 (0.000-0.034) ng/mL NT-Pro-B Natriuret Pep 200 (0-900) pg/mL Serum Total Protein 6.8 (6.3-8.2) g/dL Albumin 3.9 (3.5-5.0) g/dL 09/05/18 Range/Units 17:10 WBC 6.3 (4.0-10.5) K/mm3 RBC 4.84 (4.1-5.4) M/mm3 Hgb 14.0 (12.0-16.0) gm/dl Hct 43.4 (35-47) % MCV 89.7 (78-100) fl MCH 28.9 (26-32) pg MCHC 32.3 (32-36) g/dl RDW 16.0 H (11.5-14.0) % Plt Count 197 (150-450) K/mm3 MPV 10.5 H (6-9.5) fl Gran % 56.9 (36.0-66.0) % Eos # (Auto) 0.10 (0-0.5) Absolute Lymphs (auto) 2.08 (1.0-4.6) Absolute Monos (auto) 0.51 (0.0-1.3) Lymphocytes % 32.9 (24.0-44.0) % Monocytes % 8.1 (0.0-12.0) % Eosinophils % 1.6 (0.00-5.0) % Basophils % 0.5 (0.0-0.4) % Absolute Granulocytes 3.61 (1.4-6.9) Basophils # 0.03 (0-0.4) D-Dimer (215-500) ng/mL Sodium (137-145) mmol/L Potassium (3.5-5.1) mmol/L Chloride (98-107) mmol/L Carbon Dioxide (22-30) mmol/L Anion Gap (5-15) MEQ/L BUN (7-17) mg/dL Creatinine (0.52-1.04) mg/dL Estimated GFR ML/MIN Glucose (74-106) mg/dL Calcium (8.4-10.2) mg/dL Total Bilirubin (0.2-1.3) mg/dL AST (14-36) U/L ALT (0-35) U/L Alkaline Phosphatase (38-126) U/L Troponin I (0.000-0.034) ng/mL NT-Pro-B Natriuret Pep (0-900) pg/mL Serum Total Protein (6.3-8.2) g/dL Albumin (3.5-5.0) g/dL - Progress Progress: improved Air Movement: good Progress Note: 09/05/18 17:16 cxr-no acute process 09/05/18 19:15 ct chest-no acute process. no pulm emboli Blood Culture(s) Obtained: No Antibiotics given: No Counseled pt/family regarding: lab results, diagnosis, need for follow-up, rad results - Departure Time of Disposition: 19:15 Departure Disposition: Home Clinical Impression: Chest pain Condition: Stable Critical Care Time: No Referrals: KRISTINE MOONEY [Primary Care Provider] - Additional Instructions: stop smoking. follow up with primary doctor for further management including evaluation for oxygen therapy and referral to assembler fishing floats if indicated.
[2018-09-05 17:17] LABS: BASOPHIL % 0.5 % (0.0-0.4); Basophil (Absolute #) 0.03 (0-0.4); Eosinophil % 1.6 % (0.00-5.0); Granulocyte Absolute (ANC) 3.61 (1.4-6.9); Granulocytes % 56.9 % (36.0-66.0); Hematocrit 43.4 % (35-47); Lymphocyte (Absolute #) 2.08 (1.0-4.6); Lymphocytes % 32.9 % (24.0-44.0); Mean Cell Volume 89.7 fl (78-100); Mean Corpuscular Hemoglobin 28.9 pg (26-32); Mean Corpuscular Hgb Concent. 32.3 g/dl (32-36); Mean Platelet Volume 10.5 fl (6-9.5); Monocyte (Absolute #) 0.51 (0.0-1.3); Monocytes % 8.1 % (0.0-12.0); Platelet Count 197 K/mm3 (150-450); Red Blood Count 4.84 M/mm3 (4.1-5.4); White Blood Count 6.3 K/mm3 (4.0-10.5)
--- NOTE | 2018-09-05 17:19 | XRAY ---
Indication: Chest pain. Comparison: April 29, 2017. Portable chest demonstrates normal heart and lungs with stable right costophrenic angle calcified granuloma. Bony thorax intact again with mild osteopenia, degenerative changes, and left shoulder arthroplasty. Impression: Nonacute chest with chronic features.
[2018-09-05 17:38] LABS: ALBUMIN 3.9 g/dL (3.5-5.0); ALKALINE PHOSPHATASE 74 U/L (38-126); ANION GAP 8.8 MEQ/L (5-15); BLOOD UREA NITROGEN 12 mg/dL (7-17); CHLORIDE 104 mmol/L (98-107); Calcium 8.9 mg/dL (8.4-10.2); Carbon Dioxide 30 mmol/L (22-30); Creatinine 1 0.54 mg/dL (0.52-1.04); Glucose 98 mg/dL (74-106); NT PRO BNP 200 pg/mL (0-900); Potassium 3.5 mmol/L (3.5-5.1); SGOT/AST 21 U/L (14-36); SGPT/ALT 15 U/L (0-35); SODIUM 140 mmol/L (137-145); Total Protein 6.8 g/dL (6.3-8.2)
[2018-09-05 19:33] VITALS: BP 110/68; PULSE 68
--- NOTE | 2018-09-06 08:36 | XRAY ---
Indication: Chest pressure. Elevated d-dimer. Multiple contiguous axial images obtained through the chest using 80 cc Isovue 370 contrast and PE protocol. Comparison: None There is good opacification of the pulmonary arteries to include the lobar and segmental branches. No filling defect or pulmonary embolus. Heart is not enlarged. Aorta is mildly arteriosclerotic without aneurysm/dissection. Mediastinal and right hilar calcified nodes. No pathologic mediastinal/hilar lymphadenopathy. Examination of the lung parenchyma demonstrates minimal bilateral dependent atelectasis and small right lower lobe calcified granuloma. No suspicious pulmonary mass, infiltrate, or effusion. Bony thorax intact with mild degenerative changes throughout the spine and left shoulder arthroplasty. Partially visualized right posterior L2 pedicle screw. Limited upper abdomen demonstrates diffuse fatty liver and 1.5 cm right mid renal cortical cyst. Impression: 1. Negative pulmonary embolus. No acute cardiopulmonary abnormalities. 2. Incidental fatty liver, right renal cyst, and evidence for old granulomatous disease. CT DI 35.17
== END 2018-09-05 19:32 | disposition home or self-care (01) ==
LOC: ED 16:16
DX: R07.89 Other chest pain (principal); F41.8 Other specified anxiety disorders; Z79.899 Other long term (current) drug therapy; J44.9 Chronic obstructive pulmonary disease, unspecified
CPT/HCPCS: 36000; 36415; 71045; 71260; 80053; 83880; 84484; 85025; 85379; 93005; 93041; 99284

== ENCOUNTER 2018-10-06 15:48 | Emergency (ER) | payer MEDICARE ==
[2018-10-06 16:06] VITALS: BP 117/86; PULSE 107; O2SAT 85
--- NOTE | 2018-10-06 16:41 | ERPHSYRPT ---
- History of Present Illness Time Seen by Provider: 10/06/18 16:00 Source: patient, family Patient Subjective Stated Complaint: total right knee replacement on 09/27/2018, thinks her knee has a lot of fluid on it Triage Nursing Assessment: Walked in with walker, right knee bandaged from surgery, removed bandage and incision is healing well, tachycardic, O2 85% and placed on 2L NC for 100%, mild swelling to right knee, physical therapy at [facility] 2x per week Physician History: 63 y/o white female s/p open right knee replacement 09/27/18, presents for wound check at incision site. Timing/Duration: day(s) (9) Quality: other (mildly) Location: extremities (righ ant knee incision) Associated Symptoms: swelling/mass/lumps Allergies/Adverse Reactions: amoxicillin trihydrate [From Augmentin] Allergy (Intermediate, Verified 16:07) Hives potassium clavulanate [From Augmentin] Allergy (Intermediate, Verified 10/06/18 16:07) Hives Home Medications: Buspirone HCl 10 mg PO BID 11/27/15 [History] Venlafaxine HCl ER 75 mg [Effexor XR 75 MG] 225 mg PO HS 11/27/15 [History ] Alendronate Sodium 70 mg [Fosamax 70 MG] 70 mg PO Q7D@0600 08/16/16 [ History] Albuterol Sulfate [Proair Hfa] 2 puffs IH Q6HPRN PRN 04/29/17 [History] Budesonide/Formoterol Fumarate [Symbicort 160-4.5 Mcg Inhaler] 10.2 gm IH BID [History] Pregabalin [Lyrica] 150 mg PO BID 04/29/17 [History] Tiotropium [place] Inhaler [Spiriva 18 Mcg/Cap Inhaler] 1 puff IH DAILY [History] Hx Tetanus, Diphtheria Vaccination/Date Given: Yes Hx Influenza Vaccination/Date Given: Yes Hx Pneumococcal Vaccination/Date Given: No - Review of Systems Constitutional: No Symptoms Eyes: No Symptoms Ears, Nose, & Throat: No Symptoms Respiratory: No Symptoms Cardiac: No Symptoms Abdominal/Gastrointestinal: No Symptoms Genitourinary Symptoms: No Symptoms Musculoskeletal: No Symptoms Skin: No Symptoms Neurological: No Symptoms Psychological: No Symptoms Endocrine: No Symptoms Hematologic/Lymphatic: No Symptoms Immunological/Allergic: No Symptoms All Other Systems: Reviewed and Negative - Past Medical History Pertinent Past Medical History: Yes Neurological History: No Pertinent History ENT History: No Pertinent History Cardiac History: Hypertension Respiratory History: COPD Endocrine Medical History: No Pertinent History Musculoskeletal History: Degenerative Disk Disease, Osteoarthritis GI Medical History: No Pertinent History History: No Pertinent History Psycho-Social History: Anxiety, Depression Female Reproductive Disorders: No Pertinent History Other Medical History: Notes low blood pressure too, B KIKE, L TKA, L TSA, fused L-spine. - Past Surgical History Past Surgical History: Yes Neuro Surgical History: No Pertinent History Cardiac: No Pertinent History Respiratory: Chest Surgery Gastrointestinal: No Pertinent History Genitourinary: No Pertinent History Musculoskeletal: Joint Replacement, Orthopedic Surgery Female Surgical History: Hysterectomy Other Surgical History: spinal surgery, ortho surgery - Social History Smoking Status: Current every day smoker How long have you smoked: 40 YEARS Exposure to second hand smoke: Yes Drug Use: none Patient Lives Alone: No - Nursing Vital Signs Nursing Vital Signs: Initial Vital Signs Temperature 98.0 F 10/06/18 15:57 Pulse Rate 107 H 10/06/18 15:57 Blood Pressure 117/86 10/06/18 15:57 O2 Sat by Pulse Oximetry 85 L 10/06/18 15:57 Pain Scale Pain Intensity 8 - Physical Exam General Appearance: no apparent distress, alert, anxiety Eye Exam: PERRL/EOMI, eyes nml inspection Ears, Nose, Throat Exam: moist mucous membranes Neck Exam: normal inspection, non-tender, supple, full range of motion Respiratory Exam: lungs clear, airway intact, No chest tenderness Gastrointestinal/Abdomen Exam: No tenderness Pelvic Exam: not done Rectal Exam: not done Back Exam: normal inspection, normal range of motion Extremity Exam: other (right ant knee incision site intact with julian. no odor no drainage. no evidence of infection) Neurologic Exam: alert, oriented x 3, cooperative, workers compensation analyst II-XII nml as tested Skin Exam: normal color, warm, other (see above) Lymphatic Exam: No adenopathy SpO2 Interpretation: borderline oxygenation SpO2: 85 O2 Delivery: Room Air - Course Nursing assessment & vital signs reviewed: Yes - Progress Progress: unchanged Counseled pt/family regarding: diagnosis, need for follow-up - Departure Departure Disposition: Home Clinical Impression: Encounter for postoperative wound check Condition: Stable Critical Care Time: No Referrals: KRISTINE MOONEY [Primary Care Provider] - Additional Instructions: keep site clean daily with soap and water. apply antibiotic ointment daily to wound and cover with nonstick bandage. keep your appointment with orthopedic surgeon.
== END 2018-10-06 17:08 | disposition home or self-care (01) ==
LOC: ED 15:48
DX: Z48.00 Encounter for change or removal of nonsurgical wound dressing (principal); Z96.651 Presence of right artificial knee joint; I10 Essential (primary) hypertension; J44.9 Chronic obstructive pulmonary disease, unspecified; F41.9 Anxiety disorder, unspecified
CPT/HCPCS: 99283